=== PATIENT | male | born 1970 | race Hispanic/Latino ===

== ENCOUNTER 2020-05-15 09:02 | Emergency (ER) | payer SELFPAY ==
[~2020-05-15] VITALS: Ht 172.7 cm; Wt 136.1 kg
[2020-05-15] MEDS ORDERED: TETRACAINE HCL 0.5% OPTH SOLN 4 ML BTL ONE (09:41)
[2020-05-15] MEDS ORDERED: FLUORESCEIN SOD(OPTH) 1 MG STRP ONE (09:41)
[2020-05-15] MEDS ORDERED: MAXITROL EYE O3.5 GM OD (10:19)
[2020-05-15] MEDS ORDERED: AUGMENTIN 500-1 EACH PO (10:19)
== END 2020-05-15 11:32 | disposition home or self-care (01) ==
LOC: FSED 09:25
DX: H57.11 Ocular pain, right eye (principal); S05.01XA Injury of conjunctiva and corneal abrasion without foreign body, right eye, initial encounter; Y99.0 Civilian activity done for income or pay
CPT/HCPCS: 99283

== ENCOUNTER 2020-05-26 07:06 | Emergency (ER) | payer SELFPAY ==
[~2020-05-26] VITALS: Ht 172.7 cm; Wt 132.2 kg
[~2020-05-26 07:06] MED LIST: AUGMENTIN 500-1 EACH PO; MAXITROL EYE O3.5 GM OD
[2020-05-26] MEDS ORDERED: HYDRALAZINE HCL 20 MG/ML VIAL IV STA (07:50)
[2020-05-26] MEDS ORDERED: SODIUM CHLORIDE 0.9% 1000ML 1,000 ML IV SCH (08:00)
[2020-05-26] MEDS ORDERED: KETOROLAC TROMETHAMINE 30 MG/ML VIAL IV STA (08:03)
[2020-05-26] MEDS ORDERED: DEXAMETHASONE SOD PHOS INJ 4 MG/ML VIAL IV ONE (08:15)
[2020-05-26] MEDS ORDERED: DIPHENHYDRAMINE HCL INJ 50 MG/ML VIAL IV ONE (08:15)
[2020-05-26] MEDS ORDERED: DIPHENHYDRAMINE HCL INJ 50 MG/ML VIAL ONE (08:18)
[2020-05-26] MEDS ORDERED: KETOROLAC TROMETHAMINE 30 MG/ML VIAL ONE (08:18)
[2020-05-26] MEDS ORDERED: DEXAMETHASONE SOD PHOS INJ 4 MG/ML VIAL ONE (08:19)
[2020-05-26 09:40] VITALS: BP 137/64
[2020-05-26] MEDS ORDERED: AUGMENTIN 875-1 EACH PO (09:40)
[2020-05-26] MEDS ORDERED: FIORICET 50-301 EACH PO (09:41)
[2020-05-26] MEDS ORDERED: METFORMIN HCL500 MG PO (09:42)
== END 2020-05-26 09:56 | disposition home or self-care (01) ==
LOC: FSED 07:40
DX: R51.9 Headache, unspecified (principal); J01.90 Acute sinusitis, unspecified; R73.9 Hyperglycemia, unspecified; R03.0 Elevated blood-pressure reading, without diagnosis of hypertension; F17.210 Nicotine dependence, cigarettes, uncomplicated
CPT/HCPCS: 70450; 80053; 81003; 85025; 99283; J0360; J1100; J1200; J1885; J7030

== ENCOUNTER 2020-11-18 10:25 | Emergency (ER) | payer SELFPAY ==
[~2020-11-18] VITALS: Ht 172.7 cm; Wt 132.4 kg
[~2020-11-18 10:25] MED LIST changes: +AUGMENTIN 875-1 EACH PO; +FIORICET 50-301 EACH PO; +METFORMIN HCL500 MG PO
[2020-11-18] MEDS ORDERED: KETOROLAC TROME10 MG PO (12:58)
[2020-11-18] MEDS ORDERED: PEPCID20 MG PO (12:58)
== END 2020-11-18 13:10 | disposition home or self-care (01) ==
LOC: FSED 10:34
DX: R10.13 Epigastric pain (principal); R73.9 Hyperglycemia, unspecified; N20.0 Calculus of kidney; K42.9 Umbilical hernia without obstruction or gangrene; F17.210 Nicotine dependence, cigarettes, uncomplicated
CPT/HCPCS: 36415; 74176; 80048; 80076; 83690; 99284